=== PATIENT | male | born 1980 | race Caucasian/White ===

== ENCOUNTER → 2018-09-30 | Outpatient (CLI) | payer OTHER | LOC: LAB.O 15:27 | PROVIDERS: ATTEND Nurse Practitioner Family | DX: N39.0 Urinary tract infection, site not specified (principal) ==

== ENCOUNTER → 2019-06-30 | Outpatient (CLI) | payer OTHER | LOC: RAD 08:18 | PROVIDERS: ATTEND Orthopaedic Surgery | DX: M25.552 Pain in left hip (principal); Z96.642 Presence of left artificial hip joint ==

== ENCOUNTER 2019-08-04 05:27 | Day surgery (SDC) | payer OTHER ==
[2019-08-04] MEDS ORDERED: SODIUM CHLORIDE 0.9% 50 ML VIAL ONE (07:00)
[2019-08-04] MEDS ORDERED: raNITIdine HCL INJ 25 MG/ML VIAL ONE (07:00)
[2019-08-04] MEDS ORDERED: DEXAMETHASONE INJ 10 MG/ML VIAL ONE (07:00)
[2019-08-04] MEDS ORDERED: PROPOFOL 200 MG/20 ML VIAL IV ONE (07:00)
[2019-08-04] MEDS ORDERED: LIDOCAINE 1% 10 ML VIAL INJ ONE (07:00)
[2019-08-04] MEDS ORDERED: LACTATED RINGERS 1,000 ML ONE (07:54)
[2019-08-04] MEDS ORDERED: BUPIVACAINE 0.25% W/EPI 50 ML VIAL INJ ONE (10:16)
[2019-08-04] MEDS ORDERED: KETAMINE HCL 100 MG/ML VIAL ONE (12:49)
[2019-08-04] MEDS ORDERED: HYDROmorphone HCL INJ 2 MG/ML VIAL ONE (12:49)
[2019-08-04] MEDS ORDERED: MIDAZOLAM INJ 5 MG/5 ML VIAL ONE (12:49)
[2019-08-04] MEDS ORDERED: ROCURONIUM BROMIDE 10 MG/ML VIAL ONE (12:53)
[2019-08-04] MEDS ORDERED: HYDROcodone 5MG/APAP 325MG 1 EA TAB ONE (14:51)
[2019-08-04 15:51] VITALS: BP 130/98; TEMP 97.3; O2SAT 94
--- NOTE | 2019-08-06 13:19 | OP ---
DATE OF PROCEDURE: 08/04/2019 PREOPERATIVE DIAGNOSIS: 1. Left inguinal hernia. POSTOPERATIVE DIAGNOSIS: 1. Direct left inguinal hernia. 2. 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 PROCEDURE: 1. Repair of left inguinal hernia with mesh. 2. Excision of cm retroperitoneal tumor/cord lipoma. 3. Ilioinguinal nerve block for postoperative pain control. SURGEON: Vahid Clinton MD. ANESTHESIA: General. FINDINGS: As described. CONDITION: Stable. PLAN: Discharge. INDICATION: As stated. PROCEDURE: General anesthesia was induced. He was prepped and draped in sterile fashion. Incision was marked. Ilioinguinal nerve block was performed with 3 mL of 0.5% Marcaine with epinephrine a the incision site. Incision was made. Subcutaneous tissue was taken down. Subcutaneous vessel was cauterized. The external oblique aponeurosis was identified. A maryjo was made. It was opened along its fibers, opening up the internal ring and out laterally. The nerve was identified. It was in the upper musculature. The cord was isolated. He had a bulky proximal cord. We dissected out a retroperitoneal tumor/cord lipoma coming through the internal ring. This was highly ligated. We then identified a direct hernia component. We entered it and it was pretty pachoulis internal ring as well. We were able to dissect out the preperitoneal plane with 3 moist Ray-Tecs holding the epigastric vessels anteriorly with an [employer]. We then placed a large PHS mesh. It was lying out nicely in the preperitoneal space. A cut was made and wrapped round the cord non-stricturing and secured at the shelving edge. It was then secured at the tubercle. There was no significant bleeding. Some local was placed in the tubercle. The mesh was laid out laterally. Again, the nerve was in good position. The mesh had been trimmed a little more inferiorly. The external oblique was then closed with a running 2-0 Vicryl with care not to incorporate the nerve. More local was placed. The wound was then closed in two additional layers and dressing applied. The patient was awakened and taken to Recovery to be discharged. #[id number] [facility]
== END 2019-08-04 15:35 ==
LOC: AMB 05:27
PROVIDERS: ATTEND Surgery
DX: K40.90 Unilateral inguinal hernia, without obstruction or gangrene, not specified as recurrent (principal); D17.6 Benign lipomatous neoplasm of spermatic cord; Z96.642 Presence of left artificial hip joint
CPT/HCPCS: 00830; 36415; 49505; 55520; 80048; 85014; 85018; A4216; J1100; J1170; J2250; J2780; J3490; J7120